=== PATIENT | male | born 1980 | race African-American/Black ===

== ENCOUNTER 2021-03-05 14:15 | Emergency (ER) | payer OTHER ==
[~2021-03-05] VITALS: Ht 175.3 cm; Wt 122.5 kg
[2021-03-05] MEDS ORDERED: DEXAMETHASONE 4 MG TAB PO STA (15:54)
[2021-03-05] MEDS ORDERED: AUGMENTIN 875-1 EACH PO (16:27)
[2021-03-05 17:01] VITALS: BP 134/64
== END 2021-03-05 16:50 | disposition home or self-care (01) ==
LOC: ER 15:22
DX: R05 Cough (principal); J32.9 Chronic sinusitis, unspecified; I10 Essential (primary) hypertension; E11.9 Type 2 diabetes mellitus without complications; E78.5 Hyperlipidemia, unspecified
CPT/HCPCS: 71046; 93005; 99283; J8540